=== PATIENT | male | born 1975 | race Caucasian/White ===

== ENCOUNTER 2022-06-30 07:50 | Outpatient (CLI) | payer BC, SELFPAY ==
[2022-06-30 11:06] LABS: Albumin* 4.7 g/dL (3.3-5.0); Chloride* 103 mmol/L (96-114); Sodium* 139 mmol/L (135-149)
[2022-06-30 11:07] LABS: Potassium* 4.1 mmol/L (3.6-5.1)
[2022-06-30 11:09] LABS: Aspartate Amino Transferase* 30 U/L (12-35); Bilirubin Total* 0.6 mg/dL (0.1-1.5); Blood Urea Nitrogen* 22 mg/dL (5-24); Carbon Dioxide* 26 mmol/L (20-32); Cholesterol* 157 mg/dL (90-199); Creatinine* 0.9 mg/dL (0.5-1.5); Estimated Glomerular Filt Rate 107 ml/min; Glucose* 92 mg/dL (60-115); Triglycerides* 124 mg/dL (40-149)
[2022-06-30 11:10] LABS: Alanine Aminotransferase* 24 U/L (4-50); Alkaline Phosphatase* 76 U/L (40-150); HDL Cholesterol* 40 mg/dL (>=40); LDL Cholesterol Calculated 92 mg/dL (<100)
== END 2022-06-30 07:51 | disposition home or self-care (01) ==
PROVIDERS: PCP Family Medicine; Visit Provider Family Medicine
DX: Z00.00 Encounter for general adult medical examination without abnormal findings (principal); R89.9 Unspecified abnormal finding in specimens from other organs, systems and tissues; Z13.6 Encounter for screening for cardiovascular disorders
CPT/HCPCS: 80053; 80061

== ENCOUNTER 2023-08-03 10:17 | Outpatient (CLI) | payer BC, SELFPAY ==
--- NOTE | 2023-08-03 11:58 | W.ANESCHARGE ---
Anesthesia Charges Start Date/Time Anesthesia Start Date: 08/03/23 Anesthesia Start Time: 11:23 Stop Date/Time Anesthesia Stop Date: 08/03/23 Anesthesia Stop Time: 12:12
--- NOTE | 2023-08-03 12:07 | W.ANESCHARGE ---
Anesthesia Charges Start Date/Time Anesthesia Start Date: 08/03/23 Anesthesia Start Time: 11:23 Stop Date/Time Anesthesia Stop Date: 08/03/23 Anesthesia Stop Time: 12:12
== END 2023-08-03 10:18 | disposition home or self-care (01) ==
LOC: OP CLINIC 10:19
PROVIDERS: PCP Family Medicine; Visit Provider Surgery
DX: Z12.11 Encounter for screening for malignant neoplasm of colon (principal); K63.5 Polyp of colon; Z83.719 Family history of colon polyps, unspecified
CPT/HCPCS: 00811; 45385; 88305; J2704